=== PATIENT | female | born 1945 | race Caucasian/White ===

== ENCOUNTER → 2017-04-14 | Outpatient (CLI) | payer OTHER ==
[~2017-04-14] MED LIST: CHOL1000 PO; FERR1TAB13 PO; HYDR-5688 PO; KETO10TA PO; LEVO75TA5 PO; LEVO88TA3 PO; LISI40TA PO; METO25TA3 PO; NRN/600 PO; PANT40TA PO; PARO1TAB29 PO
[2017-04-14 12:26] LABS: BASO ABS # 0.05 K/uL (0-0.2); COMPLETE YES; EOS % 3.2 %; HEMATOCRIT 42.2 % (37-47); IG% 0.2 %; LYMPH % 24.6 %; LYMPH ABS # 1.23 K/uL (1.2-3.4); MEAN CELL VOLUME 96.8 fL (80-100); MEAN CORPUSCULAR HEMOGLOBIN 31.4 pg (25-34); MEAN CORPUSCULAR HGB CONC 32.5 g/dl (32-36); MEAN PLATELET VOLUME 10.6 fL (7.4-10.4); MONO % 9.8 %; NEUT % 61.2 %; PLATELET COUNT 293 K/uL (130-400); RED BLOOD COUNT 4.36 M/uL (4.2-5.4); WHITE BLOOD COUNT 4.99 K/uL (4.8-10.8)
[2017-04-14 12:33] LABS: GLUCOSE 97 mg/dl (70-99)
[2017-04-14 12:34] LABS: BLOOD UREA NITROGEN 17 mg/dl (7-18); BUN/CREATININE RATIO 15.2 (10-20); CALCIUM 9.3 mg/dl (8.5-10.1); CARBON DIOXIDE 25 mmol/L (21-32); CHLORIDE 112 mmol/L (98-107); POTASSIUM 4.6 mmol/L (3.5-5.1); SODIUM 141 mmol/L (136-145)
== END | disposition home or self-care (01) ==
LOC: C.CPL 10:28
PROVIDERS: ATTEND Orthopaedic Surgery
DX: Z01.810 Encounter for preprocedural cardiovascular examination (principal); Z01.812 Encounter for preprocedural laboratory examination; M75.121 Complete rotator cuff tear or rupture of right shoulder, not specified as traumatic

== ENCOUNTER → 2017-04-22 | Day surgery (SDC) | payer OTHER ==
[2017-04-14 13:18] VITALS: Ht 167.6 cm; Wt 90.9 kg
[~2017-04-22] VITALS: Ht 167.6 cm; Wt 90.9 kg
[~2017-04-22] MED LIST changes: +ATROPINE SULFATE 0.1 MG/ML 5ML SYR IV PRN; +BUPIVACAINE/EPINEPHRINE 0.25% 1:200,000 30 ML VIAL ONE; +BUPIVACAINE/EPINEPHRINE 0.5% MPF 1:200,000 10 ML VIAL ONE; +CEFAZOLIN 2000 MG/60 ML D5W IV SCH; +DEXAMETHASONE SOD INJ 4 MG/ML VIAL ONE; +EpHEDrine SULFATE 50MG/5ML SYR ONE; +EpHEDrine SULFATE INJ 50 MG/ML AMP IV PRN; +EpINEphrine INJ 1MG/ML AMP 1 MG/ML AMP ONE; +FENTANYL CITRATE INJ 50 MCG/1 ML 2 ML VIAL IV PRN; +FENTANYL CITRATE INJ 50 MCG/1 ML 2 ML VIAL ONE; +HYDROCODONE/ACETAMOPHEN 5/325MG TAB PO PRN; +LACTATED RINGER'S 1000ML 1,000 ML IV SCH; +LIDOCAINE HCL 2% 2 ML VIAL (20MG/ML) ONE; +MIDAZOLAM HCL 1 MG/ML 2ML VIAL ONE; +ONDANSETRON INJ 2 MG/ML 2 ML VIAL IV PRN; +PROMETHAZINE HCL INJ 6.25 MG in SODIUM CHLORIDE 0.9% 50ML 50 ML IV PRN; +PROPOFOL IV EMULSION 10 MG/ML 20 ML VIAL IV ONE; +SODIUM CHLORIDE 0.9% 1000ML 1,000 ML IV SCH
--- NOTE | 2017-04-22 06:50 | History & Physical Bridge Note ---
H&P Re-Evaluation Bridge Note: I have examined the patient, reviewed the History & Physical and in the interval since the performance of the History & Physical I have noted the following changes of clinical significance: No changes noted
[2017-04-22 11:26] VITALS: TEMP 36.4
--- NOTE | 2017-04-22 11:27 | Discharge Instructions-SurgCtr ---
Discharge Instructions Date of Service Apr 22, 2017. Visit Reason for Visit: Right Shoulder Full Thickness Rotator Cuff Tear Discharge Discharge Diagnosis / Problem: SAME ABOVE Discharge Goals Goal(s): Decrease discomfort, Improve function Medications Stopped Medications Name(s): aspirin and excedrin last dose 7 days ago. Restart Stopped Medication(s): MAY RESTART ASA 04/23/2017 MAY TAKE EXCEDRIN 04/23/2017. DO NOT TAKE MORE THAN 3000MG OF ACETAMINOPHEN IN 1 DAY Activity Recommendations Activity Limitations: as noted below Lifting Limitations: until after follow-up appointment Shower/Bathe: tomorrow Anesthesia . Post Anesthesia Instructions: If you have had General Anesthesia or IV Sedation: * Do not drive today. * Resume driving when surgeon permits. * Do not make important decisions or sign legal documents today. * Call surgeon for: 1. Temperature elevations greater than 101 degrees F. 2. Uncontrollable pain. 3. Excessive bleeding. 4. Persistent nausea and vomiting. 5. Medication intolerance (nausea, vomiting or rash). * For nausea and vomiting use only clear liquids such as: tea, soda, bouillon until nausea subsides, then gradually increase diet as tolerated. * If you have any concerns or questions, call your surgeon's office. If physician is unavailable and it is an emergency, call 911 or go to the nearest emergency room. . Instructions / Follow-Up Instructions / Follow-Up MEDICATIONS: * Resume previous medications unless instructed otherwise by your surgeon. * Always take pain medication on a full stomach or with food to avoid upset stomach. * Do not drink alcohol or drive while taking narcotics. * Ibuprofen or Tylenol may be taken if narcotic not needed. SPECIAL CARE INSTRUCTIONS: __ None _X_ Keep extremity elevated and iced x 48 hours; apply ice 20-30 minutes 8-10 times/day. May remove at night. __ Sling __24 hrs/day __ Remove at night _X_ Shoulder Immobilizer (MAY REMOVE AFTER 48 HOURS ONLY TO SHOWER AND FOR THERAPY) _X_ 24 hrs/day __ Remove at night _X_ Dressing __ Maintain until seen in office, may shower with plastic over site _X_ Remove dressings in 24-48 hours and then may shower _X_ Cover incisions with band-aids after showering __ Do not remove steri-strips Call physician if chills or temperature rises above 102 degrees or pain unrelieved by prescribed pain medications at . . Diet Recommendations Home Diet: no limitations Fluid Restriction: None Procedures Procedures Performed: Right Shoulder Arthroscopy, Medium Rotator Cuff Repair, Biceps Tenodesis Pending Studies Studies pending at discharge: no Work Instructions Return To Work: after follow-up Lifting Limitations: NO LIFTING WITH RIGHT SHOULDER Medical Emergencies . Who to Call and When: Medical Emergencies: If at any time you feel your situation is an emergency, please call 911 immediately. . Non-Emergent Contact Non-Emergency issues call your: Primary Care Provider Call Non-Emergent contact if: you have a fever, temperature is above 101.5 . . "Provider Documentation" section prepared by Eben Valdez. .
--- NOTE | 2017-04-22 11:39 | OPERATIVE REPORT ---
DATE OF OPERATION: 04/22/2017 PREOPERATIVE DIAGNOSIS: Severe external impingement with medium sized rotator cuff tear of the right shoulder. POSTOPERATIVE DIAGNOSIS: Same. PROCEDURES: Right shoulder diagnostic arthroscopy with limited debridement, acromioplasty, medium sized rotator cuff repair and arthroscopic biceps tenodesis. SURGEON: Dr. Andreas Murphy. COMMUNITY HEALTH NAVIGATOR: Santy Valdez PA-C, whose assistance was necessary for positioning the arm and helping with instrumentation. ANESTHESIA: Sedation with a right interscalene nerve block. COMPLICATIONS: None. CONDITION: Stable to PACU. INDICATIONS: Magui is a pleasant 71-year-old female who works for [employer]. On January 29, she was on a walk-in freezer. She slipped and injured her right shoulder. She had an open fracture at the time that was treated in [place]. Unfortunately, she had a lot of shoulder pain. MRI and clinical examination were diagnostic for severe external impingement and a medium sized cuff tear. After failing conservative treatment, she elected to undergo arthroscopy. DESCRIPTION OF PROCEDURE: On 04/22/2017, she arrived at [facility] for the above procedure. She was seen in the preoperative holding area and the operative extremity was identified and signed. She was given a preoperative antibiotic and a right interscalene nerve block. She was taken back to the operating room, laid on the table in supine position and put under basic sedation. The right shoulder was prepped and draped in sterile fashion. Time-out was done and the patient and operative extremity was properly identified. A scope was introduced in the posterior portal. Diagnostic arthroscopy showed some grade 2 cartilage damage to the humeral head. There was no cartilage damage on the glenoid. The biceps tendon was intact. The rotator cuff had loss its tension and was sitting on the top of the biceps tendon. There was some articular-sided tearing of the supraspinatus, but did not appear to go all the way through from the articular side. The infraspinatus, teres minor and subscapularis were checked and intact. An anterior portal was made. A shaver was used to do a limited debridement of the intraarticular structures and the biceps tendon was arthroscopically tenotomized. The scope was put into the subacromial space. A lateral portal was made. A shaver was used to do a complete subacromial and subdeltoid bursectomy. An ablator was used to tease the coracoacromial ligament off the undersurface of the acromion and a 5-0 verna was used to complete an acromioplasty of a very large Bigliani type 3 spur. An ablator was used to remove any excess debris. The AC joint was examined and looked to be okay. The attention was turned then to the rotator cuff. An additional anterolateral portal was made and [place] cannulas were placed in each of the lateral portals. The cuff tear was easily opened up to a medium size crescent-shaped rotator cuff tear. There was poor tissue quality from the trauma and impingement from the subacromial spur. The greater tuberosity was prepared with a ring curette and a microfracture. The rotator cuff was then fixed with an Arthrex SpeedBridge configuration using BioComposite SwiveLock suture anchors. The biceps tendon was tagged with a FiberLink and incorporated into the anteriorlateral anchor. This completed an arthroscopic biceps tenodesis. This gave a nice knotless fixation. Multiple pictures were taken. The scope was placed back into the glenohumeral joint and the articular margin of the rotator cuff had been restored. Pictures were taken. Arthroscopic instruments were then removed from the shoulder. Portal sites were closed with 3-0 nylon. She was then placed in a soft dressing and an abduction arm sling. She was then extubated, transferred to a litter and taken to the postanesthesia care unit in stable condition. She tolerated the procedure well. I attest to the content of the Intraoperative Record and any orders documented therein. Any exceptions are noted below. AGNES
[2017-04-22 12:07] VITALS: BP 115/73; PULSE 69; O2SAT 95
--- NOTE | 2017-04-22 12:18 | Anesthesia Progress Nt - [facility] ---
Anesthesia Post Op Note Date & Time Apr 22, 2017 at 12:17 Vital Signs Pain Intensity: 0 Vital Signs Past 12 Hours Date Time Temp Pulse Resp B/P (MAP) Pulse Ox O2 Delivery O2 Flow Rate FiO2 04/22/17 12:07 69 16 115/73 (87) 95 Room Air 04/22/17 11:26 36.4 71 16 126/79 (95) 96 Room Air 04/22/17 09:56 63 04/22/17 09:56 60 16 96 04/22/17 09:55 121/59 04/22/17 09:51 59 17 95 04/22/17 09:51 60 04/22/17 09:50 121/59 04/22/17 09:46 61 17 94 04/22/17 09:46 61 04/22/17 09:45 117/56 04/22/17 09:41 62 04/22/17 09:41 62 16 94 04/22/17 09:40 63 16 120/55 94 04/22/17 09:40 63 04/22/17 09:36 121/56 04/22/17 09:35 59 17 95 04/22/17 09:35 60 17 04/22/17 09:34 59 20 04/22/17 09:34 59 20 96 04/22/17 09:30 145/70 04/22/17 09:29 61 17 04/22/17 09:29 61 17 95 04/22/17 09:28 61 18 97 04/22/17 09:28 61 18 04/22/17 09:25 155/80 04/22/17 09:23 63 20 96 04/22/17 09:23 64 20 04/22/17 09:22 56 19 04/22/17 09:22 59 19 93 04/22/17 09:21 138/77 04/22/17 09:19 142/73 04/22/17 09:17 57 16 92 04/22/17 09:17 57 16 04/22/17 08:25 36.2 62 22 169/100 (123) 95 Room Air Notes Mental Status: alert / awake / arousable, participated in evaluation Pt Amnestic to Procedure: Yes Nausea / Vomiting: adequately controlled Pain: adequately controlled Airway Patency, RR, SpO2: stable & adequate BP & HR: stable & adequate Hydration State: stable & adequate Anesthetic Complications: no major complications apparent block working well in pacu
--- NOTE | 2017-04-22 12:45 | [facility] Post Operative Brief Note ---
Immediate Operative Summary Operative Date Apr 22, 2017. Pre-Operative Diagnosis Right Shoulder Full Thickness Rotator Cuff Tear Post-Operative Diagnosis Same Procedure(s) Performed Right Shoulder Arthroscopy, Medium Rotator Cuff Repair, Biceps Tenodesis Surgeon Dr. Murphy [employer] Surgeon(s) Valeria Valdez PA-C Estimated Blood Loss 5ml Findings as above Specimens None Complication(s) None Disposition Recovery Room / PACU
== END | disposition home or self-care (01) ==
LOC: X.SURG 07:37
PROVIDERS: ATTEND Orthopaedic Surgery
DX: M25.811 Other specified joint disorders, right shoulder (principal); S46.011A Strain of muscle(s) and tendon(s) of the rotator cuff of right shoulder, initial encounter; W18.40XA Slipping, tripping and stumbling without falling, unspecified, initial encounter; I10 Essential (primary) hypertension; F41.9 Anxiety disorder, unspecified